=== PATIENT | male | born 1990 | race Two or more races ===

== ENCOUNTER 2016-05-14 14:20 | Inpatient (IN) | payer OTHER ==
[~2016-05-14] VITALS: Ht 177.8 cm; Wt 80.0 kg
[2016-05-14 15:27] LABS: MEAN CORPUSCULAR HEMOGLOBIN 28.2 pg (27.0-33.0); MEAN CORPUSCULAR HGB CONC 34.9 g/dl (32.0-36.5); MEAN CORPUSCULAR VOLUME 80.7 fl (80.0-96.0); RED CELL DISTRIBUTION WIDTH 12.5 % (11.5-14.5); WHITE BLOOD COUNT 8.3 K/mm3 (4.0-10.0)
[2016-05-14 15:52] LABS: ALBUMIN 3.9 GM/DL (3.2-5.2); ALBUMIN/GLOBULIN RATIO 0.91 (1.00-1.93); ALKALINE PHOSPHATASE 86 U/L (45-117); ALT/SGPT 24 U/L (12-78); ANION GAP 5 MEQ/L (8-16); AST/SGOT 15 U/L (15-37); BILIRUBIN,DIRECT < 0.1 MG/DL (0.0-0.2); BILIRUBIN,TOTAL 0.3 MG/DL (0.2-1.0); BLOOD UREA NITROGEN 17 MG/DL (7-18); CARBON DIOXIDE LEVEL 32 MEQ/L (21-32); CHLORIDE LEVEL 104 MEQ/L (98-107); CREATININE FOR GFR 1.04 MG/DL (0.70-1.30); GLOMERULAR FILTRATION RATE > 60.0 (>60); GLUCOSE, FASTING 90 MG/DL (70-105); POTASSIUM SERUM 3.9 MEQ/L (3.5-5.1); SODIUM LEVEL 141 MEQ/L (136-145); TOTAL PROTEIN 8.2 GM/DL (6.4-8.2)
[2016-05-14 16:22] LABS: CONTROL LINE INT CTR LINE PRESENT; METHADONE URINE NEGATIVE (NEGATIVE); TRICYCLIC ANTIDEPRESS URINE NEGATIVE (NEGATIVE)
--- NOTE | 2016-05-15 12:34 | EDDOCDS ---
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 Disposition: 05/15/16 12:09 Hospitalization ordered by Jorge Rueda for Inpatient Admission. Preliminary diagnosis is Major depressive disorder, single episode, moderate. - Bed requested for Admit. - Status is Inpatient Admission. kcs - Condition is Stable. - Problem is new. - Symptoms are unchanged. Historical: - Allergies: no known allergies; - Home Meds: 1. none - PMHx: none; - PSHx: wisdom teeth extraction; [facility]; left arm bone surgery as a child (fx); - Social history: Smoking status: Patient states was never smoker of tobacco. No barriers to communication noted. - Family history: Not pertinent. - : The pt / caregiver states he / she is not on anticoagulants. Home medication list is obtained from the patient. - Exposure Risk Screening:: None identified. Vital Signs: 05/14 14:29 BP 139 / 75; Pulse 86; Resp 18; Temp 97.2(O); Pulse Ox 99% on R/A; Weight 77.11 kg / mk4 170 lbs; Height 5 ft. 10 in. (177.80 cm); 20:19 BP 133 / 76; Pulse 75; Resp 16; Temp 98.2(TE); Pulse Ox 98% on R/A; rw1 05/15 05:24 BP 128 / 76; Pulse 65; Resp 16; Temp 97.3(T); Pulse Ox 97% on R/A; Pain 0/10; rw1 12:24 BP 125 / 76; Pulse 85; Resp 18; Temp 97.4(O); Pulse Ox 97% ; dpm 05/14 14:29 Body Mass Index 24.39 (77.11 kg, 177.80 cm) mk4 MDM: 05/14 14:33 Consult PFS/PSA/Cable Wirer ordered. br1 14:33 Consult PFS/PSA/Cable Wirer: Patient's case requires discussion with on-call br1 Psychiatrist ordered. 14:33 PSA/PFS to call Nursing [employer], to enter patient data on [place] Safe Act if patient br1 involuntarily admitted or transferred for SI or HI ordered. 14:33 Confirm accurate psychiatric medication list and times of last dosage ordered. br1 14:33 Detain Pt Until Medically/PFS Cleared ordered. br1 14:34 Acetaminophen Level Ordered. EDMS 14:34 Basic Metabolic Profile Ordered. EDMS 14:34 Complete Blood Count Ordered. EDMS 14:34 Drug Eval Toxicology ED Only Ordered. EDMS 14:34 Ethyl Alcohol (ethanol) Ordered. EDMS 14:34 Liver Profile Ordered. EDMS 14:34 Salicylate Level Ordered. EDMS 14:34 Thyroid Stimulating Hormone Ordered. EDMS 15:07 Consult PFS/PSA/Cable Wirer complete. rb 15:12 Consult PFS/PSA/Cable Wirer: Patient's case requires discussion with on-call mk4 Psychiatrist complete. 15:12 PSA/PFS to call [employer], to enter patient data [place] Safe [place] if patient mk4 involuntarily admitted or transferred for SI or HI complete. 15:51 Financial registration complete. zo 16:26 Acetaminophen Level Reviewed. br1 16:26 Basic Metabolic Profile Reviewed. br1 16:26 Liver Profile Reviewed. br1 16:26 Salicylate Level Reviewed. br1 16:26 Complete Blood Count Reviewed. br1 16:26 Drug Eval Toxicology ED Only Reviewed. br1 16:26 Ethyl Alcohol (ethanol) Reviewed. br1 16:26 Thyroid Stimulating Hormone Reviewed. br1 16:36 REGULAR DIET PLASTIC RUSOS+DIET ordered. EDMS 16:59 [facility] Payment Agreement was scanned into [employer] and attached to record. zo 17:00 Consult PFS/PSA/Socail Worker: Cleared medically for eval ordered. br1 17:01 Consult PFS/PSA/Socail Worker: Cleared medically for eval complete. rb 18:58 Transition of care: After a detail discussion of the patient's case, care is br1 transferred to ED Physician, Dr. Duncan. 05/15 04:34 REGULAR DIET PLASTIC RUSSO+DIET ordered. EDMS 06:38 REGULAR DIET PED PLASTIC RUSSO ordered. EDMS 11:45 REGULAR DIET PLASTIC RUSSO+DIET ordered. EDMS 12:02 Admit to [facility]: ordered. EDMS 12:11 [facility] Legal paperwork was scanned into [employer] and attached to record. jl Signatures: Dispatcher [employer] EDElisha Daugherty MD MD sd1 Carol Goldsmith RN RN kcs Jeanette Pastor, PAWEL PSA Alejandro Lay, PAWEL PSA Rosie Burt Brian, MD MD br1 Angela Nava RN RN mk4 The chart was reviewed and I authenticate all verbal orders and agree with the evaluation and treatment provided.Attachments: 05/14 16:59 [facility] Agreement zo MTDD
--- NOTE | 2016-05-15 12:34 | EDDOCDS ---
Nurse's Notes [facility] Name: Rony Michael Age: 25 yrs Sex: Male : 1990 Arrival Date: 05/14/2016 Time: 14:20 Bed OBSERVATION Private MD: Diagnosis: Major depressive disorder, single episode, moderate Presentation: 05/14 14:26 Presenting complaint: Patient states: pt walked into [facility] at [place] today mk4 to talk to someone, last evening he had thoughts of suicide with a plan did not discuss plan with me , this morning he decided to go talk to someone and he was sent here from [facility]. Mental Health Triage Level: Level 2: The patient displays active suicidal ideations. Adult Sepsis Screening: The patient does not have new or worsening altered mentation. Patient's respiratory rate is less than 22. Systolic blood pressure is greater than 100. Patient has a qSOFA score of 0- Negative Sepsis Screen. Suicide/Homicide risk assessment- The patient admits to and/or has been reported to be having suicidal ideations. The patient reports that he/she has not been admitted to an inpatient mental health facility in the last 30 days. The patient reports that he/she does not have a recent or current history of substance abuse. The patient reports that he/she has no prior history of suicide attempt and/or organized plan. The patient reports that he/she has not experienced a significant life altering event in the last 30 days. The patient reports that he/she has adequate social support. The patient reports he/she has no significant chronic medical condition(s). 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 Transition of care: patient was received from [facility]. 14:26 Acuity: [place] Level 3 mk4 14:26 Method Of Arrival: Ambulance mk4 15:30 Suicide/Homicide risk assessment- The patient reports that he/she has experienced a mk4 significant life altering event in the last 30 days. Triage Assessment: 14:29 General: Appears in no apparent distress, Behavior is flat, quiet. Pain: Denies pain. mk4 HIV screening NA for this visit Offered previously. Historical: - Allergies: no known allergies; - Home Meds: 1. none - PMHx: none; - PSHx: wisdom teeth extraction; [facility] Eye Surgery; left arm bone surgery as a child (fx); - Social history: Smoking status: Patient states was never smoker of tobacco. No barriers to communication noted. - Family history: Not pertinent. - : The pt / caregiver states he / she is not on anticoagulants. Home medication list is obtained from the patient. - Exposure Risk Screening:: None identified. Screenin:53 Screening information is obtained from the patient. Fall risk: No risks identified. mk4 Assistance ADL's: requires no assistance with activities of daily living. Abuse/DV Screen: The patient / caregiver reports he/she is: not in a situation that causes fear, pain or injury. Nutritional screening: No deficits noted. Advance Directives: Currently, there is no health care proxy. There is no active DNR order. There is no living will. There is no Power of Buncher Machine. Advance directive information has not previously been placed in an [facility] medical record. Further advance directive information is declined. 15:29 home support is adequate. mk4 Assessment: 14:53 General: Appears in no apparent distress, Behavior is cooperative, dr finn in mk4 interviewing pt. Neurological: Level of Consciousness is awake, Oriented to person, place, time. Respiratory: Airway is patent Respiratory effort is even, unlabored, Respiratory pattern is regular. 15:29 General: Appears in no apparent distress, comfortable, escort in at bedside with pt. mk4 Neurological: Level of Consciousness is awake, alert. Respiratory: Airway is patent Respiratory effort is even, unlabored, Respiratory pattern is regular. 16:30 General: Appears in no apparent distress, Behavior is cooperative. Neurological: Level mk4 of Consciousness is awake, alert. Respiratory: Airway is patent Respiratory effort is even, unlabored, Respiratory pattern is regular. 17:42 General: Appears in no apparent distress, comfortable, Behavior is cooperative, using mk4 phone in room remains calm . 19:15 Reassessment: Patient appears in no apparent distress at this time. awake resting rw1 quietly on stretcher, safety maintained will monitor.. 20:00 General: Appears in no apparent distress, comfortable, Safety maintained at this time, nn1 resp even/unlabored. . 20:19 General: Appears in no apparent distress, comfortable, Behavior is appropriate for age, rw1 cooperative, pleasant. Pain: Denies pain. Neurological: Level of Consciousness is awake, alert, obeys commands, Oriented to person, place, time. Respiratory: Airway is patent Respiratory effort is even, unlabored. Derm: Skin is pink, warm & dry. normal. 21:20 Reassessment: Patient appears in no apparent distress at this time. awake resting rw1 quietly on stretcher, safety maintained will monitor.. 22:26 Reassessment: Patient appears in no apparent distress at this time. awake resting rw1 quietly on stretcher, safety maintained will monitor.. 23:27 General: Appears in no apparent distress, comfortable, Behavior is resting quietly on rw1 stretcher, safety maintained. Respiratory: Airway is patent Respiratory effort is even, unlabored. Derm: Skin is pink, warm & dry. normal. 05/15 00:20 Reassessment: Patient appears in no apparent distress at this time. resting quietly on rw1 stretcher, safety maintained will monitor.. 01:14 Reassessment: Patient appears in no apparent distress at this time. resting quietly on rw1 stretcher, safety maintained will monitor.. 01:23 General: Appears in no apparent distress, to be sleeping. Behavior is quiet, Safety nn1 maintained. . Neurological:. Respiratory: Airway is patent Respiratory effort is even, unlabored, Respiratory pattern is regular. Derm: Skin is pink, warm & dry. 02:19 Reassessment: Patient appears in no apparent distress at this time. resting quietly on rw1 stretcher, safety maintained. 03:15 Reassessment: Patient appears in no apparent distress at this time. resting quietly on rw1 stretcher, safety maintained. 04:32 General: Appears in no apparent distress, comfortable, Behavior is resting quietly on rw1 stretcher, safety maintained. Respiratory: Airway is patent Respiratory effort is even, unlabored. Derm: Skin is pink, warm & dry. normal. 05:24 General: Appears in no apparent distress, comfortable, Behavior is appropriate for age, rw1 cooperative, quiet. Pain: Denies pain. Neurological: Level of Consciousness is awake, alert, obeys commands, Oriented to person, place, time. Respiratory: Airway is patent Respiratory effort is even, unlabored. Derm: Skin is pink, warm & dry. normal. 06:13 Reassessment: Patient appears in no apparent distress at this time. for further rw1 documentation see [employer]. 06:43 General: Appears in no apparent distress, comfortable, to be sleeping. Respiratory: nn1 Airway is patent Respiratory effort is even, unlabored, Respiratory pattern is regular, symmetrical. Derm: Skin is pink, warm & dry. 10:09 Reassessment: Patient sleeping on stretcher - respirations easy. Has eaten breakfast. kcs Security observing.. 11:14 Reassessment: Patient sleeping. Respirations easy. Color = pink. Roused easily to kcs voice. Denies any needs. security observing.. 12:22 Reassessment: Patient states he is bored and looking forward to admission.. General: kcs Appears comfortable, well developed, well nourished, well groomed, Behavior is cooperative, pleasant. Pain: Denies pain. Neurological: Level of Consciousness is awake, alert. Respiratory: Airway is patent Respiratory effort is even, unlabored, Respiratory pattern is regular, symmetrical. Derm: Skin is intact, is healthy with good turgor, Skin is dry, Skin is normal. Mental Health Eval: 05/14 15:55 Mental health consult is initiated at 15:45. 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 [facility] Behavioral Health: The patient is not an established patient of [facility] Behavioral Health. Referral Information: Evaluation referral is generated by the patient's therapist PHONE MANAGER \\[facility]\\ [place]. The patient was referred for evaluation because Pt presented to ED after walkin \\T\\ [facility] stating +SI with plan for MVA last night. Pt stated fleeting +SI since February, with increased +SI thoughts with a plan almost daily. Pt stated, "Not willing to be alive", "go into down spiral", last around an hour throughout the day," worse when alone". Pt reported depression spiral started after 2nd divorce ( 2 years) a year ago. Pt's exWife went back to [place] and took their 2y/o Dgt. Pt not allowed to see Dgt. according to Pt. 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 Pt stated his depression affects his soldiers, "not able to care for my men". Pt cannot CFS. . Subjective: The patients chief complaint is increased depressed, +SI with plan to smash his car., anxiety. Delusions are denied. Patient's mood is anxious, dysphoric, hopeless, Hallucinations are denied. Mental Health history: anxiety, depression, Mental Health Admissions: None. Current Outpatient Mental Health Services: Therapist / Agency: PHONE MANAGER on [place]. Next apt is not scheduled, Pt scheduled for [facility] for 1 month next week.. Current living environment is The patient currently lives in a [facility]. The patient is . Patient presents to Emergency Department with the following symptoms within the past 2 weeks: anxiety, depressed mood, feelings of helplessness/hopelessness, labile mood, poor concentration, relational problem, sleep disturbance - insomnia, suicidal ideation with plan for motor vehicle crash. Substance abuse: Pt denies. Mental status exam: Patients appearance is appropriate, Patient's behavior is cooperative, minimally responsive Speech is mumbled. slow. Affect is flat. Mood is anxious. dysphoric. Hallucinations are denied. Appetite is erratic Memory is good. Energy level is lethargic. Content of thought is depressive. , Thought process is characterized by flight of ideas. Cognitive level is oriented to person, place, time and situation Patient's insight is poor. Judgement is poor. Rapport with interviewer is good. Suicidal Ideation present with a plan to kill self by motor vehicle crash. Homicidal ideation is not present. Disposition: Medically cleared for disposition by Angelito Finn MD. 16:52 Disposition: Psychiatric Consult is performed by phone with Dr Jorge Rueda MD. [facility] rb Admission Criteria: The patient is experiencing suicidal ideation. The patient displays symptoms of severe psychiatric disorder resulting in disordered behavior and significant interference with his / her ability to maintain self care. The patient requires continuous observation and/or control to protect self, others or property. Legal Status: Patient's legal status will be Emergency admission: 9.39. [place] Safe Act: [place] Safe Act is applicable to this patient. The patient poses a risk to self or other and the Nursing Nurse Leader has been notified. He/She will enter the patient's data. Insurance Pre-Certification: Not Required. 20:08 Narrative: At this time [facility], as well as all other surrounding area hospitals are jl at capacity. Patient to remain in ED while awaiting a bed. He & his Mary are both aware of this. 05/15 12:17 Narrative: Pt legals placed with belongings. rb Vital Signs: 05/14 14:29 BP 139 / 75; Pulse 86; Resp 18; Temp 97.2(O); Pulse Ox 99% on R/A; Weight 77.11 kg; mk4 Height 5 ft. 10 in. (177.80 cm); 20:19 BP 133 / 76; Pulse 75; Resp 16; Temp 98.2(TE); Pulse Ox 98% on R/A; rw1 05/15 05:24 BP 128 / 76; Pulse 65; Resp 16; Temp 97.3(T); Pulse Ox 97% on R/A; Pain 0/10; rw1 12:24 BP 125 / 76; Pulse 85; Resp 18; Temp 97.4(O); Pulse Ox 97% ; dpm 05/14 14:29 Body Mass Index 24.39 (77.11 kg, 177.80 cm) 4 Vitals: 05/14 14:29 Log In Time N/A - ambulance arrival. 4 ED Course: 14:21 Patient visited by Beth Hammer Reg. lg 14:[address] [facility] 14:21 Patient moved to [facility] dpm 14:28 Triage Initiated mk4 14:31 Patient visited by Olayinka Quevedo. dpm 14:32 Pt greeted and oriented to ED. Patient advised of names of staff involved in care, dpm location of call solorio, wait times and NPO status. Patient has correct armband on for positive identification. Placed in gown. Placed in psych safe attire. Bed in low position. Security observing. Property removed, inventory done, secured in belongings bag- placed in locked locker. Placed in locker 1. Psych Safety Check: Location: Psych Room. Visual Assessment: Cooperative. 14:33 Angelito Finn MD is Attending Physician. br1 14:53 The patient / caregiver is instructed regarding the plan of care and ED course. mk4 15:03 Patient visited by Angelito Finn MD. br1 15:12 Acetaminophen Level Sent. mk4 15:12 Basic Metabolic Profile Sent. mk4 15:12 Complete Blood Count Sent. mk4 15:12 Ethyl Alcohol (ethanol) Sent. mk4 15:12 Liver Profile Sent. mk4 15:12 Salicylate Level Sent. mk4 15:12 Thyroid Stimulating Hormone Sent. mk4 15:31 Patient visited by Olayinka Quevedo. dpm 15:45 Patient visited by Olayinka Quevedo. dpm 15:50 Drug Eval Toxicology ED Only Sent. mk4 16:01 Patient visited by Olayinka Quevedo. dpm 16:16 Patient visited by Olayinka Quevedo. dpm 16:31 Patient visited by Olayinka Quevedo. dpm 16:59 [facility] Payment Agreement was scanned into [employer] and attached to record. zo 17:01 Patient visited by Olayinka Quevedo. dpm 17:20 Patient visited by Olayinka Quevedo. dpm 17:35 Patient visited by Olayinka Quevedo. dpm 17:45 Patient moved to OBSERVATION br1 17:53 Patient visited by Olayinka Quevedo. dpm 18:08 Patient visited by Olayinka Quevedo. dpm 18:35 Patient visited by Olayinka Quevedo. dpm 18:53 Patient visited by Olayinka Quevedo. dpm 19:03 Patient visited by Navid Torres. tr 19:14 Patient visited by Navid Torres. tr 19:18 Bladimir Coffman LPN is Primary Nurse. rw1 19:29 Patient visited by Navid Torres. tr 19:34 Patient visited by Navid Torres. tr 19:49 Attending Physician role handed off by Angelito Finn MD cs11 19:49 Frankie Duncan DO is Attending Physician. cs11 20:01 Patient visited by Navid Torres. tr 20:18 Patient visited by Navid Torres. tr 20:32 Patient visited by Navid Torres. tr 20:46 Patient visited by Navid Torres. tr 21:00 Patient visited by Navid Torres. tr 21:14 Patient visited by Navid Torres. tr 21:30 Patient visited by Navid Torres. tr 22:00 Patient visited by Navid Torres. tr 22:28 Patient visited by Navid Torres. tr 22:45 Patient visited by Navid Torres. tr 23:01 Patient visited by Navid Torres. tr 23:15 Patient visited by Navid Torres. tr 23:30 Patient visited by Navid Torres. tr 23:44 Patient visited by Navid Torres. tr 05/15 00:00 Patient visited by Navid Torres. tr 00:18 Patient visited by Brian Navid. tr 00:48 Patient visited by [facility]. tr 01:13 Patient visited by Bladimir Coffman LPN. rw1 01:30 Patient visited by [facility] Navid. tr 01:48 Patient visited by [facility] Navid. tr 02:04 Patient visited by [facility]. tr 02:17 Patient visited by [facility]. tr 02:29 Patient visited by [facility] Navid. tr 02:44 Patient visited by [facility]. tr 03:01 Patient visited by [facility]. tr 03:17 Patient visited by [facility] Navid. tr 03:30 Patient visited by [facility]. tr 03:47 Patient visited by [facility]. tr 03:59 Patient visited by [facility]. tr 04:14 Patient visited by [facility]. tr 04:30 Patient visited by [facility]. tr 04:44 Patient visited by [facility]. tr 05:01 Patient visited by [facility]. tr 05:14 Patient visited by [facility]. tr 05:43 Patient visited by [facility]. tr 05:59 Patient visited by [facility]. tr 06:02 Patient visited by [facility]. tr 06:17 Patient visited by [facility]. tr 06:30 Patient visited by [facility]. tr 06:44 Patient visited by [facility]. tr 06:46 Patient visited by [facility]. tr 06:49 Attending Physician role handed off by Frankie Duncan DO sd1 06:49 Elisha Galser MD is Attending Physician. sd1 07:04 Patient visited by Olayinka Quevedo. dpm 07:04 Report received from ROQUE Levy. kcs 07:15 Patient visited by Olayinka Quevedo. dpm 07:28 Patient visited by Olayinka Quevedo. dpm 08:03 Patient visited by Olayinka Quevedo. dpm 08:37 Patient visited by Olayinka Quevedo. dpm 08:45 Patient visited by Olayinka Quevedo. dpm 09:02 Patient visited by Olayinka Quevedo. dpm 09:32 Patient visited by Olayinka Quevedo. dpm 09:52 Patient visited by Olayinka Quevedo. dpm 10:05 Patient visited by Olayinka Quevedo. dpm 10:22 Patient visited by Olayinka Quevedo. dpm 10:33 Patient visited by Olayinka Quevedo. dpm 10:54 Patient visited by Olayinka Quevedo. dpm 11:10 Patient visited by Olayinka Quevedo. dpm 11:41 Patient visited by Olayinka Quevedo. dpm 12:09 Jorge Rueda MD is Hospitalizing Provider. sd1 12:11 [facility] Legal paperwork was scanned into [employer] and attached to record. jl 12:15 Patient visited by Olayinka Quevedo. dpm 12:22 No IV's were initiated during this patient's visit. No procedures done that require kcs assistance. 12:24 Patient visited by Olayinka Quevedo. dpm 12:31 Patient visited by Olayinka Quevedo. dpm Attachments: 05/15 12:11 E Legal paperwork jl Order Results: Lab Order: Acetaminophen Level; SPEC'M 05/14/16 14:52 Test: ACETAMINOPHEN LEVEL; Value: < 2.0; Range: 10.0-30.0; Abnormal: Below low normal; Units: UG/ML; Status: F Lab Order: Basic Metabolic Profile; SPEC'M 05/14/16 14:52 Test: GLUCOSE, FASTING; Value: 90; Range: 70-105; Units: MG/DL; Status: F Test: BLOOD UREA NITROGEN; Value: 17; Range: 7-18; Units: MG/DL; Status: F Test: CREATININE FOR GFR; Value: 1.04; Range: 0.70-1.30; Units: MG/DL; Status: F Test: GLOMERULAR FILTRATION RATE; Value: > 60.0; Range: >60; Status: F Test: SODIUM LEVEL; Value: 141; Range: 136-145; Units: MEQ/L; Status: F Test: POTASSIUM SERUM; Value: 3.9; Range: 3.5-5.1; Units: MEQ/L; Status: F Test: CHLORIDE LEVEL; Value: 104; Range: 98-107; Units: MEQ/L; Status: F Test: CARBON DIOXIDE LEVEL; Value: 32; Range: 21-32; Units: MEQ/L; Status: F Test: ANION GAP; Value: 5; Range: 8-16; Abnormal: Below low normal; Units: MEQ/L; Status: F Test: CALCIUM LEVEL; Value: 9.0; Range: 8.5-10.1; Units: MG/DL; Status: F Test Note: ; Units are mL/min/1.73 m2 Chronic Kidney Disease Staging per NKF: Stage I & II GFR >=60 Normal to Mildly Decreased Stage III GFR 30-59 Moderately Decreased Stage IV GFR 15-29 Severely Decreased Stage V GFR <15 Very Little GFR Left ESRD GFR <15 on COMPUTER ASSISTANT Lab Order: Complete Blood Count; SPEC'M 05/14/16 14:52 Test: WHITE BLOOD COUNT; Value: 8.3; Range: 4.0-10.0; Units: K/mm3; Status: F Test: RED BLOOD COUNT; Value: 5.48; Range: 4.30-6.10; Units: M/mm3; Status: F Test: HEMOGLOBIN; Value: 15.4; Range: 14.0-18.0; Units: g/dl; Status: F Test: HEMATOCRIT; Value: 44.2; Range: 42.0-52.0; Units: %; Status: F Test: MEAN CORPUSCULAR VOLUME; Value: 80.7; Range: 80.0-96.0; Units: fl; Status: F Test: MEAN CORPUSCULAR HEMOGLOBIN; Value: 28.2; Range: 27.0-33.0; Units: pg; Status: F Test: MEAN CORPUSCULAR HGB CONC; Value: 34.9; Range: 32.0-36.5; Units: g/dl; Status: F Test: RED CELL DISTRIBUTION WIDTH; Value: 12.5; Range: 11.5-14.5; Units: %; Status: F Test: PLATELET COUNT, AUTOMATED; Value: 365; Range: 150-450; Units: k/mm3; Status: F Lab Order: Drug Eval Toxicology ED Only; SPEC'M 05/14/16 14:52 Test: AMPHETAMINES LEVEL URINE; Value: NEGATIVE; Range: NEGATIVE; Status: F Test: BARBITURATES URINE; Value: NEGATIVE; Range: NEGATIVE; Status: F Test: BENZODIAZEPINES URINE; Value: NEGATIVE; Range: NEGATIVE; Status: F Test: CANNABINOIDS URINE; Value: NEGATIVE; Range: NEGATIVE; Status: F Test: COCAINE METABOLITE URINE; Value: NEGATIVE; Range: NEGATIVE; Status: F Test: METHADONE URINE; Value: NEGATIVE; Range: NEGATIVE; Status: F Test: OPIATES URINE; Value: NEGATIVE; Range: NEGATIVE; Status: F Test: TRICYCLIC ANTIDEPRESS URINE; Value: NEGATIVE; Range: NEGATIVE; Status: F Test Note: ; ALL PRESUMPTIVE POSITIVE FINDINGS ARE UNCONFIRMED NORMAL VALUES THRESHOLD IN NG/ML AMPHETAMINES 1000 METHAMPHETAMINES 1000 BARBITURATES 300 BENZODIAZEPINES 300 CANNABINOIDS (THC) 50 COCAINE METABOLITE 300 METHADONE 300 OPIATES 300 PHENCYCLIDINE 25 TRICYCLIC ANTIDEPRESSANTS 1000 RESULTS ARE FOR MEDICAL PURPOSES ONLY. ALL URINE SPECIMENS WILL BE SAVED FOR 3 DAYS. IF CONFIRMATION OF A PRESUMPTIVE POSTIVE SCREEN RESULT IS DESIRED, CALL CHEMISTRY ([phone]) AND REQUEST URINE TO BE SENT TO REFERENCE LAB. FOR A LIST OF CLOSELY RELATED COMPOUNDS PLEASE CALL THE LAB. Lab Order: Ethyl Alcohol (ethanol); SPEC'M 05/14/16 14:52 Test: ETHYL ALCOHOL (ETHANOL); Value: < 0.003; Range: 0.000-0.010; Units: %; Status: F Lab Order: Liver Profile; SPEC'M 05/14/16 14:52 Test: AST/SGOT; Value: 15; Range: 15-37; Units: U/L; Status: F Test: ALT/SGPT; Value: 24; Range: 12-78; Units: U/L; Status: F Test: ALKALINE PHOSPHATASE; Value: 86; Range: 45-117; Units: U/L; Status: F Test: BILIRUBIN,TOTAL; Value: 0.3; Range: 0.2-1.0; Units: MG/DL; Status: F Test: BILIRUBIN,DIRECT; Value: < 0.1; Range: 0.0-0.2; Units: MG/DL; Status: F Test: TOTAL PROTEIN; Value: 8.2; Range: 6.4-8.2; Units: GM/DL; Status: F Test: ALBUMIN; Value: 3.9; Range: 3.2-5.2; Units: GM/DL; Status: F Test: ALBUMIN/GLOBULIN RATIO; Value: 0.91; Range: 1.00-1.93; Abnormal: Below low normal; Status: F Lab Order: Salicylate Level; SPEC'M 05/14/16 14:52 Test: SALICYLATE LEVEL; Value: < 1.7; Range: 5.0-30.0; Abnormal: Below low normal; Units: MG/DL; Status: F Lab Order: Thyroid Stimulating Hormone; SPEC'M 05/14/16 14:52 Test: THYROID STIMULATING HORMONE; Value: 2.570; Range: 0.358-3.740; Units: uIU/ML; Status: F Outcome: 12:09 Decision to Hospitalize by Provider. sd1 12:22 Discharge Assessment: Patient awake, alert and oriented x 3. No cognitive and/or kcs functional deficits noted. Patient verbalized understanding of disposition instructions. Patient awake and alert. patient administered narcotics - no. The following High Risk Discharge criteria are identified: Yes, evaluated by PSA.. Admitted to Psych accompanied by tech, via wheelchair, with chart. Condition: stable. No special radiology studies were completed. Property :Personal belongings accompany Pt. 12:33 Patient left the ED. kcs Signatures: Elisha Glaser MD MD sd1 Carol Goldsmith RN RN kcs Jeanette Pastor, PSA PSA rb Alejandro Blanco, PSA PSA jl Beth Hammer, Troy Reg lg Brian, Navid tr Bladimir Coffman,HEALTH PROFESSOR HEALTH PROFESSOR rw1 Rosie Cohen Brian, MD MD br1 Olayinka Quevedo dpFrankie Snatos, DO cs11 Angela Nava RN RN mk4 Cam Albert RN RN nn1 MTDD
[2016-05-15 12:50] VITALS: BP 135/78
[2016-05-15] MEDS ORDERED: MAALOX 30 ML SUSP *UDC PO PRN (14:45)
[2016-05-15] MEDS ORDERED: ACETAMINOPHEN TAB 650MG DOSE (2X325MG) PO PRN (14:45)
[2016-05-15] MEDS ORDERED: MOM 30ML SUSPENSION UDC PO PRN (14:45)
[2016-05-15] MEDS ORDERED: LORazepam 1 MG TAB PO PRN (14:45)
[2016-05-15 18:00] VITALS: BP 124/65
[2016-05-15 21:30] VITALS: BP 136/82
[2016-05-16 06:35] VITALS: BP 115/55
--- NOTE | 2016-05-16 09:52 | HPEPDOC ---
Medical History and Physical Date of Admission May 15, 2016 at 11:58 History and Physical PCP: Toña ATTENDING: Dr. Saul Figueredo HPI: 25yoM admitted to [facility] for MDD, being medically examined today. No acute medical complaints today. Denies any fevers, chills, weakness, fatigue, NICOLE, CP, SOB, cough, palpitations, abdominal pain, N/V/D or changes in bowel or bladder habits. 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 ROS: As noted in HPI, otherwise 11pt ROS of systems reviewed and unremarkable PE: GEN: 25yoM, appears stated age. Well-nourished, well developed. No acute distress. Alert and oriented x 3. Pleasant, interactive. HEENT: Normocephalic, atraumatic. Pupils are equal, round, and reactive to light. Extraocular movements are intact. No nystagmus appreciated. Sclera are nonicteric. Conjunctiva without injection. Nose midline. Nasal turbinates without bogginess. EACs both patent BL. TMs both visualized and nogueira with good cone of light, no bulging or erythema. No facial asymmetry. Moist mucous membranes. Dentition fair. Pharynx pink and moist, no cobblestoning. Neck supple , trachea midline. No lymphadenopathy or thyromegaly appreciated. CHEST: Regular rate and rhythm, +S1, +S2 LUNGS: Clear to auscultation bilaterally. No wheezes, rales, or rhonchi. Breathing appears symmetric and easy. Patient is speaking in full sentences. No accessory muscle use. ABD: Round, soft, non-tender, non-distended. +Bowel sounds throughout. No rebound or guarding. No costovertebral angle tenderness. EXT: Pulses 2+ bilaterally dorsalis pedis and radial. No lower extremity edema appreciated. SKIN: [place], dry, warm. Capillary refill <2sec. No rashes. NEURO: Alert and oriented x 3. Cranial nerves III-XII are intact. No focal deficits appreciated. EKG: Pending. A&P: 25yoM admitted to [facility] for MDD 1. Psych. Plan per Psychiatry. Obtain baseline EKG to assure the safety of psychiatric medications as they can prolong the QT interval. 2. Follow up with PCP on discharge. 3. Staff member present throughout exam, lilibeth Leal. Vital Signs Vital Signs Label Value Date Time Patient Temperature 96.2 degrees F 05/16/16 0635 Temperature Source Tympanic 05/16/16 0635 Pulse 59 05/16/16 0635 Respiratory Rate 14 bpm 05/16/16 0635 Blood Pressure Assessment 115/55 (75) 05/16/16 0635 Laboratory Data Labs 24H Item Value Date Time White Blood Count 8.3 K/mm3 05/14/16 1452 Red Blood Count 5.48 M/mm3 05/14/16 1452 Hemoglobin 15.4 g/dl 05/14/16 1452 Hematocrit 44.2 % 05/14/16 1452 Mean Corpuscular Volume 80.7 fl 05/14/16 1452 Mean Corpuscular Hemoglobin 28.2 pg 05/14/16 1452 Mean Corpuscular Hemoglobin Concent 34.9 g/dl 05/14/16 1452 Red Cell Distribution Width 12.5 % 05/14/16 1452 Platelet Count 365 k/mm3 05/14/16 1452 Sodium Level 141 MEQ/L 05/14/16 1452 Potassium Level 3.9 MEQ/L 05/14/16 1452 Chloride Level 104 MEQ/L 05/14/16 1452 Carbon Dioxide Level 32 MEQ/L 05/14/16 1452 Anion Gap 5 MEQ/L L 05/14/16 1452 Blood Urea Nitrogen 17 MG/DL 05/14/16 1452 Creatinine 1.04 MG/DL 05/14/16 1452 Glomerular Filtration Rate > 60.0 05/14/16 1452 Fasting Glucose 90 MG/DL 05/14/16 1452 Calcium Level 9.0 MG/DL 05/14/16 1452 Total Bilirubin 0.3 MG/DL 05/14/16 1452 Direct Bilirubin < 0.1 MG/DL 05/14/16 1452 Aspartate Amino Transf (AST/SGOT) 15 U/L 05/14/16 1452 Alanine Aminotransferase (ALT/SGPT) 24 U/L 05/14/16 1452 Alkaline Phosphatase 86 U/L 05/14/16 1452 Total Protein 8.2 GM/DL 05/14/16 1452 Albumin 3.9 GM/DL 05/14/16 1452 Albumin/Globulin Ratio 0.91 L 05/14/16 1452 Thyroid Stimulating Hormone (TSH) 2.570 uIU/ML 05/14/16 1452 Salicylates Level < 1.7 MG/DL L 05/14/16 1452 Urine Opiates Screen NEGATIVE 05/14/16 1452 Urine Methadone Screen NEGATIVE 05/14/16 1452 Acetaminophen Level < 2.0 UG/ML L 05/14/16 1452 Urine Barbiturates Screen NEGATIVE 05/14/16 1452 Urine Tricyclic Antidepressants NEGATIVE 05/14/16 1452 Urine Amphetamines Screen NEGATIVE 05/14/16 1452 Urine Benzodiazepines Screen NEGATIVE 05/14/16 1452 Urine Cocaine Metabolite Screen NEGATIVE 05/14/16 1452 Urine Cannabinoids Screen NEGATIVE 05/14/16 1452 Ethyl Alcohol Level < 0.003 % 05/14/16 1452 Home Medications No Active Prescriptions or Reported Meds Allergies Coded Allergies: No Known Allergies (Unverified , 05/15/16) Iris Pedroza May 16, 2016 09:52
[2016-05-16 12:00] VITALS: BP 120/62
[2016-05-16 18:00] VITALS: BP 121/56
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
[2016-05-17 06:22] VITALS: BP 144/79
--- NOTE | 2016-05-17 12:52 | ECGEPIP ---
Stationary ECG Study [facility] Test Date: 2016-05-17 Pat Name: RAQUEL MCCURDY Department: Room: [place] [address] Gender: M [employer]ellite T[employer] Technician: WALDO : 1990 Requested By: Iris Pedroza Order Number: [id number] Reading MD: Saul Figueredo Measurements Intervals Dora Rate: 64 P: 32 GA: 163 QRS: 73 QRSD: 89 T: 42 QT: 391 QTc: 404 Interpretive Statements SINUS RHYTHM Comparison tracing not on file Electronically Signed On 05-17-2016 12:52:28 EST by Saul Figueredo
--- NOTE | 2016-05-17 13:34 | EDDOCDS ---
Nurse's Notes [facility] Name: Rony Michael Age: 25 yrs Sex: Male : 1990 Arrival Date: 05/14/2016 Time: 14:20 Bed OBSERVATION Private MD: Diagnosis: Major depressive disorder, single episode, moderate Presentation: 05/14 14:26 Presenting complaint: Patient states: pt walked into [facility] today mk4 to talk to someone, last evening he had thoughts of suicide with a plan did not discuss plan with me , this morning he decided to go talk to someone and he was sent here from [facility]. Mental Health Triage Level: Level 2: The patient displays active suicidal ideations. Adult Sepsis Screening: The patient does not have new or worsening altered mentation. Patient's respiratory rate is less than 22. Systolic blood pressure is greater than 100. Patient has a qSOFA score of 0- Negative Sepsis Screen. Suicide/Homicide risk assessment- The patient admits to and/or has been reported to be having suicidal ideations. The patient reports that he/she has not been admitted to an inpatient mental health facility in the last 30 days. The patient reports that he/she does not have a recent or current history of substance abuse. The patient reports that he/she has no prior history of suicide attempt and/or organized plan. The patient reports that he/she has not experienced a significant life altering event in the last 30 days. The patient reports that he/she has adequate social support. The patient reports he/she has no significant chronic medical condition(s). 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 Transition of care: patient was received from [facility] [place]. 14:26 Acuity: [place] Level 3 mk4 14:26 Method Of Arrival: Ambulance mk4 15:30 Suicide/Homicide risk assessment- The patient reports that he/she has experienced a mk4 significant life altering event in the last 30 days. Triage Assessment: 14:29 General: Appears in no apparent distress, Behavior is flat, quiet. Pain: Denies pain. mk4 HIV screening NA for this visit Offered previously. Historical: - Allergies: no known allergies; - Home Meds: 1. none - PMHx: none; - PSHx: wisdom teeth extraction; [facility]; left arm bone surgery as a child (fx); - Social history: Smoking status: Patient states was never smoker of tobacco. No barriers to communication noted. - Family history: Not pertinent. - : The pt / caregiver states he / she is not on anticoagulants. Home medication list is obtained from the patient. - Exposure Risk Screening:: None identified. Screenin:53 Screening information is obtained from the patient. Fall risk: No risks identified. mk4 Assistance ADL's: requires no assistance with activities of daily living. Abuse/DV Screen: The patient / caregiver reports he/she is: not in a situation that causes fear, pain or injury. Nutritional screening: No deficits noted. Advance Directives: Currently, there is no health care proxy. There is no active DNR order. There is no living will. There is no Power of Hook Puller. Advance directive information has not previously been placed in an [facility] medical record. Further advance directive information is declined. 15:29 home support is adequate. mk4 Assessment: 14:53 General: Appears in no apparent distress, Behavior is cooperative, dr finn in mk4 interviewing pt. Neurological: Level of Consciousness is awake, Oriented to person, place, time. Respiratory: Airway is patent Respiratory effort is even, unlabored, Respiratory pattern is regular. 15:29 General: Appears in no apparent distress, comfortable, escort in at bedside with pt. mk4 Neurological: Level of Consciousness is awake, alert. Respiratory: Airway is patent Respiratory effort is even, unlabored, Respiratory pattern is regular. 16:30 General: Appears in no apparent distress, Behavior is cooperative. Neurological: Level mk4 of Consciousness is awake, alert. Respiratory: Airway is patent Respiratory effort is even, unlabored, Respiratory pattern is regular. 17:42 General: Appears in no apparent distress, comfortable, Behavior is cooperative, using mk4 phone in room remains calm . 19:15 Reassessment: Patient appears in no apparent distress at this time. awake resting rw1 quietly on stretcher, safety maintained will monitor.. 20:00 General: Appears in no apparent distress, comfortable, Safety maintained at this time, nn1 resp even/unlabored. . 20:19 General: Appears in no apparent distress, comfortable, Behavior is appropriate for age, rw1 cooperative, pleasant. Pain: Denies pain. Neurological: Level of Consciousness is awake, alert, obeys commands, Oriented to person, place, time. Respiratory: Airway is patent Respiratory effort is even, unlabored. Derm: Skin is pink, warm & dry. normal. 21:20 Reassessment: Patient appears in no apparent distress at this time. awake resting rw1 quietly on stretcher, safety maintained will monitor.. 22:26 Reassessment: Patient appears in no apparent distress at this time. awake resting rw1 quietly on stretcher, safety maintained will monitor.. 23:27 General: Appears in no apparent distress, comfortable, Behavior is resting quietly on rw1 stretcher, safety maintained. Respiratory: Airway is patent Respiratory effort is even, unlabored. Derm: Skin is pink, warm & dry. normal. 05/15 00:20 Reassessment: Patient appears in no apparent distress at this time. resting quietly on rw1 stretcher, safety maintained will monitor.. 01:14 Reassessment: Patient appears in no apparent distress at this time. resting quietly on rw1 stretcher, safety maintained will monitor.. 01:23 General: Appears in no apparent distress, to be sleeping. Behavior is quiet, Safety nn1 maintained. . Neurological:. Respiratory: Airway is patent Respiratory effort is even, unlabored, Respiratory pattern is regular. Derm: Skin is pink, warm & dry. 02:19 Reassessment: Patient appears in no apparent distress at this time. resting quietly on rw1 stretcher, safety maintained. 03:15 Reassessment: Patient appears in no apparent distress at this time. resting quietly on rw1 stretcher, safety maintained. 04:32 General: Appears in no apparent distress, comfortable, Behavior is resting quietly on rw1 stretcher, safety maintained. Respiratory: Airway is patent Respiratory effort is even, unlabored. Derm: Skin is pink, warm & dry. normal. 05:24 General: Appears in no apparent distress, comfortable, Behavior is appropriate for age, rw1 cooperative, quiet. Pain: Denies pain. Neurological: Level of Consciousness is awake, alert, obeys commands, Oriented to person, place, time. Respiratory: Airway is patent Respiratory effort is even, unlabored. Derm: Skin is pink, warm & dry. normal. 06:13 Reassessment: Patient appears in no apparent distress at this time. for further rw1 documentation see [employer]. 06:43 General: Appears in no apparent distress, comfortable, to be sleeping. Respiratory: nn1 Airway is patent Respiratory effort is even, unlabored, Respiratory pattern is regular, symmetrical. Derm: Skin is pink, warm & dry. 10:09 Reassessment: Patient sleeping on stretcher - respirations easy. Has eaten breakfast. kcs Security observing.. 11:14 Reassessment: Patient sleeping. Respirations easy. Color = pink. Roused easily to kcs voice. Denies any needs. security observing.. 12:22 Reassessment: Patient states he is bored and looking forward to admission.. General: kcs Appears comfortable, well developed, well nourished, well groomed, Behavior is cooperative, pleasant. Pain: Denies pain. Neurological: Level of Consciousness is awake, alert. Respiratory: Airway is patent Respiratory effort is even, unlabored, Respiratory pattern is regular, symmetrical. Derm: Skin is intact, is healthy with good turgor, Skin is dry, Skin is normal. Mental Health Eval: 05/14 15:55 Mental health consult is initiated at 15:45. 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 [facility] Behavioral Health: The patient is not an established patient of [facility] Behavioral Health. Referral Information: Evaluation referral is generated by the patient's therapist SOCIAL MEDIA DIRECTOR \\[facility]\\ [place]. The patient was referred for evaluation because Pt presented to ED after walkin \\T\\ [facility] [place] stating +SI with plan for MVA last night. Pt stated fleeting +SI since February, with increased +SI thoughts with a plan almost daily. Pt stated, "Not willing to be alive", "go into down spiral", last around an hour throughout the day," worse when alone". Pt reported depression spiral started after 2nd divorce ( 2 years) a year ago. Pt's exWife went back to [place] and took their 2y/o Dgt. Pt not allowed to see Dgt. according to Pt. 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 Pt stated his depression affects his soldiers, "not able to care for my men". Pt cannot CFS. . Subjective: The patients chief complaint is increased depressed, +SI with plan to smash his car., anxiety. Delusions are denied. Patient's mood is anxious, dysphoric, hopeless, Hallucinations are denied. Mental Health history: anxiety, depression, Mental Health Admissions: None. Current Outpatient Mental Health Services: Therapist / Agency: [facility] [place]. Next apt is not scheduled, Pt scheduled for [facility] for 1 month next week.. Current living environment is The patient currently lives in a [facility]. The patient is . Patient presents to Emergency Department with the following symptoms within the past 2 weeks: anxiety, depressed mood, feelings of helplessness/hopelessness, labile mood, poor concentration, relational problem, sleep disturbance - insomnia, suicidal ideation with plan for motor vehicle crash. Substance abuse: Pt denies. Mental status exam: Patients appearance is appropriate, Patient's behavior is cooperative, minimally responsive Speech is mumbled. slow. Affect is flat. Mood is anxious. dysphoric. Hallucinations are denied. Appetite is erratic Memory is good. Energy level is lethargic. Content of thought is depressive. , Thought process is characterized by flight of ideas. Cognitive level is oriented to person, place, time and situation Patient's insight is poor. Judgement is poor. Rapport with interviewer is good. Suicidal Ideation present with a plan to kill self by motor vehicle crash. Homicidal ideation is not present. Disposition: Medically cleared for disposition by Angelito Finn MD. 16:52 Disposition: Psychiatric Consult is performed by phone with Dr Jorge Rueda MD. [facility] rb Admission Criteria: The patient is experiencing suicidal ideation. The patient displays symptoms of severe psychiatric disorder resulting in disordered behavior and significant interference with his / her ability to maintain self care. The patient requires continuous observation and/or control to protect self, others or property. Legal Status: Patient's legal status will be Emergency admission: 9.39. [place] Safe Act: [place] Safe Act is applicable to this patient. The patient poses a risk to self or other and the Nursing Online Merchandiser has been notified. He/She will enter the patient's data. Insurance Pre-Certification: Not Required. 20:08 Narrative: At this time [facility], as well as all other surrounding area hospitals are jl at capacity. Patient to remain in ED while awaiting a bed. He & his Mary are both aware of this. 05/15 12:17 Narrative: Pt legals placed with belongings. rb Vital Signs: 05/14 14:29 BP 139 / 75; Pulse 86; Resp 18; Temp 97.2(O); Pulse Ox 99% on R/A; Weight 77.11 kg; mk4 Height 5 ft. 10 in. (177.80 cm); 20:19 BP 133 / 76; Pulse 75; Resp 16; Temp 98.2(TE); Pulse Ox 98% on R/A; rw1 05/15 05:24 BP 128 / 76; Pulse 65; Resp 16; Temp 97.3(T); Pulse Ox 97% on R/A; Pain 0/10; rw1 12:24 BP 125 / 76; Pulse 85; Resp 18; Temp 97.4(O); Pulse Ox 97% ; dpm 05/14 14:29 Body Mass Index 24.39 (77.11 kg, 177.80 cm) 4 Vitals: 05/14 14:29 Log In Time N/A - ambulance arrival. 4 ED Course: 14:21 Patient visited by Beth Hammer Reg. lg 14:21 Patient moved to [facility] 14:21 Patient moved to [facility] dpm 14:28 Triage Initiated mk4 14:31 Patient visited by Olayinka Quevedo. dpm 14:32 Pt greeted and oriented to ED. Patient advised of names of staff involved in care, dpm location of call solorio, wait times and NPO status. Patient has correct armband on for positive identification. Placed in gown. Placed in psych safe attire. Bed in low position. Security observing. Property removed, inventory done, secured in belongings bag- placed in locked locker. Placed in locker 1. Psych Safety Check: Location: Psych Room. Visual Assessment: Cooperative. 14:33 Angelito Finn MD is Attending Physician. br1 14:53 The patient / caregiver is instructed regarding the plan of care and ED course. mk4 15:03 Patient visited by Angelito Finn MD. br1 15:12 Acetaminophen Level Sent. mk4 15:12 Basic Metabolic Profile Sent. mk4 15:12 Complete Blood Count Sent. mk4 15:12 Ethyl Alcohol (ethanol) Sent. mk4 15:12 Liver Profile Sent. mk4 15:12 Salicylate Level Sent. mk4 15:12 Thyroid Stimulating Hormone Sent. mk4 15:31 Patient visited by Olayinka Quevedo. dpm 15:45 Patient visited by Olayinka Quevedo. dpm 15:50 Drug Eval Toxicology ED Only Sent. mk4 16:01 Patient visited by Olayinka Quevedo. dpm 16:16 Patient visited by Olayinka Quevedo. dpm 16:31 Patient visited by Olayinka Quevedo. dpm 16:59 [facility] Payment Agreement was scanned into [employer] and attached to record. zo 17:01 Patient visited by Olayinka Quevedo. dpm 17:20 Patient visited by Olayinka Quevedo. dpm 17:35 Patient visited by Olayinka Quevedo. dpm 17:45 Patient moved to OBSERVATION br1 17:53 Patient visited by Olayinka Quevedo. dpm 18:08 Patient visited by Olayinka Quevedo. dpm 18:35 Patient visited by Olayinka Quevedo. dpm 18:53 Patient visited by Olayinka Quevedo. dpm 19:03 Patient visited by Navid Torres. tr 19:14 Patient visited by Navid Torres. tr 19:18 Bladimir Coffman LPN is Primary Nurse. rw1 19:29 Patient visited by Navid Torres. tr 19:34 Patient visited by Navid Torres. tr 19:49 Attending Physician role handed off by Angelito Finn MD cs11 19:49 Frankie Duncan DO is Attending Physician. cs11 20:01 Patient visited by Navid Torres. tr 20:18 Patient visited by Navid Torres. tr 20:32 Patient visited by Navid Torres. tr 20:46 Patient visited by Navid Torres. tr 21:00 Patient visited by Navid Torres. tr 21:14 Patient visited by Navid Torres. tr 21:30 Patient visited by Navid Torres. tr 22:00 Patient visited by Navid Torres. tr 22:28 Patient visited by Navid Torres. tr 22:45 Patient visited by Navid Torres. tr 23:01 Patient visited by Navid Torres. tr 23:15 Patient visited by Navid Torres. tr 23:30 Patient visited by Navid Torres. tr 23:44 Patient visited by Navid Torres. tr 05/15 00:00 Patient visited by Navid Torres. tr 00:18 Patient visited by Brian Navid. tr 00:48 Patient visited by [facility]. tr 01:13 Patient visited by Bladimir Coffman LPN. rw1 01:30 Patient visited by [facility] Navid. tr 01:48 Patient visited by [facility] Navid. tr 02:04 Patient visited by [facility]. tr 02:17 Patient visited by [facility]. tr 02:29 Patient visited by [facility] Navid. tr 02:44 Patient visited by [facility]. tr 03:01 Patient visited by [facility]. tr 03:17 Patient visited by [facility] Navid. tr 03:30 Patient visited by [facility]. tr 03:47 Patient visited by [facility]. tr 03:59 Patient visited by [facility]. tr 04:14 Patient visited by [facility]. tr 04:30 Patient visited by [facility]. tr 04:44 Patient visited by [facility]. tr 05:01 Patient visited by [facility]. tr 05:14 Patient visited by [facility]. tr 05:43 Patient visited by [facility]. tr 05:59 Patient visited by [facility]. tr 06:02 Patient visited by [facility]. tr 06:17 Patient visited by [facility]. tr 06:30 Patient visited by [facility]. tr 06:44 Patient visited by [facility]. tr 06:46 Patient visited by [facility]. tr 06:49 Attending Physician role handed off by Frankie Duncan DO sd1 06:49 Elisha Glaser MD is Attending Physician. sd1 07:04 Patient visited by Olayinka Quevedo. dpm 07:04 Report received from ROQUE Levy. kcs 07:15 Patient visited by Olayinka Quevedo. dpm 07:28 Patient visited by Olayinka Quevedo. dpm 08:03 Patient visited by Olayinka Quevedo. dpm 08:37 Patient visited by Olayinka Quevedo. dpm 08:45 Patient visited by Olayinka Quevedo. dpm 09:02 Patient visited by Olayinka Quevedo. dpm 09:32 Patient visited by Olayinka Quevedo. dpm 09:52 Patient visited by Olayinka Quevedo. dpm 10:05 Patient visited by Olayinka Quevedo. dpm 10:22 Patient visited by Olayinka Quevedo. dpm 10:33 Patient visited by Olayinka Quevedo. dpm 10:54 Patient visited by Olayinka Quevedo. dpm 11:10 Patient visited by Olayinka Quevedo. dpm 11:41 Patient visited by Olayinka Quevedo. dpm 12:09 Jorge Rueda MD is Hospitalizing Provider. sd1 12:11 [facility] Legal paperwork was scanned into [employer] and attached to record. jl 12:15 Patient visited by Olayinka Quevedo. dpm 12:22 No IV's were initiated during this patient's visit. No procedures done that require kcs assistance. 12:24 Patient visited by Olayinka Quevedo. dpm 12:31 Patient visited by Olayinka Quevedo. dpm Attachments: 05/15 12:11 E Legal paperwork jl Order Results: Lab Order: Acetaminophen Level; SPEC'M 05/14/16 14:52 Test: ACETAMINOPHEN LEVEL; Value: < 2.0; Range: 10.0-30.0; Abnormal: Below low normal; Units: UG/ML; Status: F Lab Order: Basic Metabolic Profile; SPEC'M 05/14/16 14:52 Test: GLUCOSE, FASTING; Value: 90; Range: 70-105; Units: MG/DL; Status: F Test: BLOOD UREA NITROGEN; Value: 17; Range: 7-18; Units: MG/DL; Status: F Test: CREATININE FOR GFR; Value: 1.04; Range: 0.70-1.30; Units: MG/DL; Status: F Test: GLOMERULAR FILTRATION RATE; Value: > 60.0; Range: >60; Status: F Test: SODIUM LEVEL; Value: 141; Range: 136-145; Units: MEQ/L; Status: F Test: POTASSIUM SERUM; Value: 3.9; Range: 3.5-5.1; Units: MEQ/L; Status: F Test: CHLORIDE LEVEL; Value: 104; Range: 98-107; Units: MEQ/L; Status: F Test: CARBON DIOXIDE LEVEL; Value: 32; Range: 21-32; Units: MEQ/L; Status: F Test: ANION GAP; Value: 5; Range: 8-16; Abnormal: Below low normal; Units: MEQ/L; Status: F Test: CALCIUM LEVEL; Value: 9.0; Range: 8.5-10.1; Units: MG/DL; Status: F Test Note: ; Units are mL/min/1.73 m2 Chronic Kidney Disease Staging per NKF: Stage I & II GFR >=60 Normal to Mildly Decreased Stage III GFR 30-59 Moderately Decreased Stage IV GFR 15-29 Severely Decreased Stage V GFR <15 Very Little GFR Left ESRD GFR <15 on TOXICOLOGY SUPERVISOR Lab Order: Complete Blood Count; SPEC'M 05/14/16 14:52 Test: WHITE BLOOD COUNT; Value: 8.3; Range: 4.0-10.0; Units: K/mm3; Status: F Test: RED BLOOD COUNT; Value: 5.48; Range: 4.30-6.10; Units: M/mm3; Status: F Test: HEMOGLOBIN; Value: 15.4; Range: 14.0-18.0; Units: g/dl; Status: F Test: HEMATOCRIT; Value: 44.2; Range: 42.0-52.0; Units: %; Status: F Test: MEAN CORPUSCULAR VOLUME; Value: 80.7; Range: 80.0-96.0; Units: fl; Status: F Test: MEAN CORPUSCULAR HEMOGLOBIN; Value: 28.2; Range: 27.0-33.0; Units: pg; Status: F Test: MEAN CORPUSCULAR HGB CONC; Value: 34.9; Range: 32.0-36.5; Units: g/dl; Status: F Test: RED CELL DISTRIBUTION WIDTH; Value: 12.5; Range: 11.5-14.5; Units: %; Status: F Test: PLATELET COUNT, AUTOMATED; Value: 365; Range: 150-450; Units: k/mm3; Status: F Lab Order: Drug Eval Toxicology ED Only; SPEC'M 05/14/16 14:52 Test: AMPHETAMINES LEVEL URINE; Value: NEGATIVE; Range: NEGATIVE; Status: F Test: BARBITURATES URINE; Value: NEGATIVE; Range: NEGATIVE; Status: F Test: BENZODIAZEPINES URINE; Value: NEGATIVE; Range: NEGATIVE; Status: F Test: CANNABINOIDS URINE; Value: NEGATIVE; Range: NEGATIVE; Status: F Test: COCAINE METABOLITE URINE; Value: NEGATIVE; Range: NEGATIVE; Status: F Test: METHADONE URINE; Value: NEGATIVE; Range: NEGATIVE; Status: F Test: OPIATES URINE; Value: NEGATIVE; Range: NEGATIVE; Status: F Test: TRICYCLIC ANTIDEPRESS URINE; Value: NEGATIVE; Range: NEGATIVE; Status: F Test Note: ; ALL PRESUMPTIVE POSITIVE FINDINGS ARE UNCONFIRMED NORMAL VALUES THRESHOLD IN NG/ML AMPHETAMINES 1000 METHAMPHETAMINES 1000 BARBITURATES 300 BENZODIAZEPINES 300 CANNABINOIDS (THC) 50 COCAINE METABOLITE 300 METHADONE 300 OPIATES 300 PHENCYCLIDINE 25 TRICYCLIC ANTIDEPRESSANTS 1000 RESULTS ARE FOR MEDICAL PURPOSES ONLY. ALL URINE SPECIMENS WILL BE SAVED FOR 3 DAYS. IF CONFIRMATION OF A PRESUMPTIVE POSTIVE SCREEN RESULT IS DESIRED, CALL CHEMISTRY ([phone]) AND REQUEST URINE TO BE SENT TO REFERENCE LAB. FOR A LIST OF CLOSELY RELATED COMPOUNDS PLEASE CALL THE LAB. Lab Order: Ethyl Alcohol (ethanol); SPEC'M 05/14/16 14:52 Test: ETHYL ALCOHOL (ETHANOL); Value: < 0.003; Range: 0.000-0.010; Units: %; Status: F Lab Order: Liver Profile; SPEC'M 05/14/16 14:52 Test: AST/SGOT; Value: 15; Range: 15-37; Units: U/L; Status: F Test: ALT/SGPT; Value: 24; Range: 12-78; Units: U/L; Status: F Test: ALKALINE PHOSPHATASE; Value: 86; Range: 45-117; Units: U/L; Status: F Test: BILIRUBIN,TOTAL; Value: 0.3; Range: 0.2-1.0; Units: MG/DL; Status: F Test: BILIRUBIN,DIRECT; Value: < 0.1; Range: 0.0-0.2; Units: MG/DL; Status: F Test: TOTAL PROTEIN; Value: 8.2; Range: 6.4-8.2; Units: GM/DL; Status: F Test: ALBUMIN; Value: 3.9; Range: 3.2-5.2; Units: GM/DL; Status: F Test: ALBUMIN/GLOBULIN RATIO; Value: 0.91; Range: 1.00-1.93; Abnormal: Below low normal; Status: F Lab Order: Salicylate Level; SPEC'M 05/14/16 14:52 Test: SALICYLATE LEVEL; Value: < 1.7; Range: 5.0-30.0; Abnormal: Below low normal; Units: MG/DL; Status: F Lab Order: Thyroid Stimulating Hormone; SPEC'M 05/14/16 14:52 Test: THYROID STIMULATING HORMONE; Value: 2.570; Range: 0.358-3.740; Units: uIU/ML; Status: F Outcome: 12:09 Decision to Hospitalize by Provider. sd1 12:22 Discharge Assessment: Patient awake, alert and oriented x 3. No cognitive and/or kcs functional deficits noted. Patient verbalized understanding of disposition instructions. Patient awake and alert. patient administered narcotics - no. The following High Risk Discharge criteria are identified: Yes, evaluated by PSA.. Admitted to Psych accompanied by tech, via wheelchair, with chart. Condition: stable. No special radiology studies were completed. Property :Personal belongings accompany Pt. 12:33 Patient left the ED. kcs Signatures: Elisha Glaser MD MD sd1 Carol Goldsmith RN RN kcs Jeanette Pastor, PSA PSA rb Alejandro Blanco, PSA PSA jl Beth Hammer, Troy Reg lg Brian, Navid tr Bladimir Coffman,CREDIT COLLECTIONS MANAGER CREDIT COLLECTIONS MANAGER rw1 Rosie Cohen Brian, MD MD br1 Olayinka Quevedo dpFrankie Santos, DO cs11 Angela Nava RN RN mk4 Cam Albert RN RN nn1 Chart Complete MTDD
--- NOTE | 2016-05-17 13:34 | EDDOCDS ---
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 Disposition: 05/15/16 12:09 Hospitalization ordered by Jorge Rueda for Inpatient Admission. Preliminary diagnosis is Major depressive disorder, single episode, moderate. - Bed requested for Admit. - Status is Inpatient Admission. kcs - Condition is Stable. - Problem is new. - Symptoms are unchanged. Historical: - Allergies: no known allergies; - Home Meds: 1. none - PMHx: none; - PSHx: wisdom teeth extraction; PRK Eye Surgery; left arm bone surgery as a child (fx); - Social history: Smoking status: Patient states was never smoker of tobacco. No barriers to communication noted. - Family history: Not pertinent. - : The pt / caregiver states he / she is not on anticoagulants. Home medication list is obtained from the patient. - Exposure Risk Screening:: None identified. Vital Signs: 05/14 14:29 BP 139 / 75; Pulse 86; Resp 18; Temp 97.2(O); Pulse Ox 99% on R/A; Weight 77.11 kg / mk4 170 lbs; Height 5 ft. 10 in. (177.80 cm); 20:19 BP 133 / 76; Pulse 75; Resp 16; Temp 98.2(TE); Pulse Ox 98% on R/A; rw1 05/15 05:24 BP 128 / 76; Pulse 65; Resp 16; Temp 97.3(T); Pulse Ox 97% on R/A; Pain 0/10; rw1 12:24 BP 125 / 76; Pulse 85; Resp 18; Temp 97.4(O); Pulse Ox 97% ; dpm 05/14 14:29 Body Mass Index 24.39 (77.11 kg, 177.80 cm) mk4 MDM: 05/14 14:33 Consult PFS/PSA/Division Director ordered. br1 14:33 Consult PFS/PSA/Division Director: Patient's case requires discussion with on-call br1 Psychiatrist ordered. 14:33 PSA/PFS to call Nursing Transport Medic, to enter patient data on [place] if patient br1 involuntarily admitted or transferred for SI or HI ordered. 14:33 Confirm accurate psychiatric medication list and times of last dosage ordered. br1 14:33 Detain Pt Until Medically/PFS Cleared ordered. br1 14:34 Acetaminophen Level Ordered. EDMS 14:34 Basic Metabolic Profile Ordered. EDMS 14:34 Complete Blood Count Ordered. EDMS 14:34 Drug Eval Toxicology ED Only Ordered. EDMS 14:34 Ethyl Alcohol (ethanol) Ordered. EDMS 14:34 Liver Profile Ordered. EDMS 14:34 Salicylate Level Ordered. EDMS 14:34 Thyroid Stimulating Hormone Ordered. EDMS 15:07 Consult PFS/PSA/Division Director complete. rb 15:12 Consult PFS/PSA/Division Director: Patient's case requires discussion with on-call mk4 Psychiatrist complete. 15:12 PSA/PFS to call Nursing Transport Medic, to enter [place] data [place] if patient mk4 involuntarily admitted or transferred for SI or HI complete. 15:51 Financial registration complete. zo 16:26 Acetaminophen Level Reviewed. br1 16:26 Basic Metabolic Profile Reviewed. br1 16:26 Liver Profile Reviewed. br1 16:26 Salicylate Level Reviewed. br1 16:26 Complete Blood Count Reviewed. br1 16:26 Drug Eval Toxicology ED Only Reviewed. br1 16:26 Ethyl Alcohol (ethanol) Reviewed. br1 16:26 Thyroid Stimulating Hormone Reviewed. br1 16:36 REGULAR DIET PLASTIC RUSSO+DIET ordered. EDMS 16:59 [facility] Payment Agreement was scanned into [email or web address] and attached to record. zo 17:00 Consult PFS/PSA/Socail Worker: Cleared medically for eval ordered. br1 17:01 Consult PFS/PSA/Socail Worker: Cleared medically for eval complete. rb 18:58 Transition of care: After a detail discussion of the patient's case, care is br1 transferred to ED Physician, Dr. Duncan. 05/15 04:34 REGULAR DIET PLASTIC RUSSO+DIET ordered. EDMS 06:38 REGULAR DIET PED PLASTIC RUSSO ordered. EDMS 11:45 REGULAR DIET PLASTIC RUSSO+DIET ordered. EDMS 12:02 Admit to [facility]: ordered. EDMS 12:11 [facility] Legal paperwork was scanned into [employer] and attached to record. jl Signatures: Dispatcher [employer] EDElisha Daugherty MD MD sd1 Carol Goldsmith RN RN kcs Jeanette Pastor, PAWEL PSA Alejandro Lay, PAWEL PSA Rosie Burt Brian, MD MD br1 Angela Nava RN RN mk4 The chart was reviewed and I authenticate all verbal orders and agree with the evaluation and treatment provided.Attachments: 05/14 16:59 [facility] Payment Agreement zo Chart Complete MTDD
--- NOTE | 2016-05-17 13:34 | EDDOCDS ---
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 Disposition: 05/15/16 12:09 Hospitalization ordered by Jorge Rueda for Inpatient Admission. Preliminary diagnosis is Major depressive disorder, single episode, moderate. - Bed requested for Admit. - Status is Inpatient Admission. kcs - Condition is Stable. - Problem is new. - Symptoms are unchanged. Historical: - Allergies: no known allergies; - Home Meds: 1. none - PMHx: none; - PSHx: wisdom teeth extraction; PRK Eye Surgery; left arm bone surgery as a child (fx); - Social history: Smoking status: Patient states was never smoker of tobacco. No barriers to communication noted. - Family history: Not pertinent. - : The pt / caregiver states he / she is not on anticoagulants. Home medication list is obtained from the patient. - Exposure Risk Screening:: None identified. Vital Signs: 05/14 14:29 BP 139 / 75; Pulse 86; Resp 18; Temp 97.2(O); Pulse Ox 99% on R/A; Weight 77.11 kg / mk4 170 lbs; Height 5 ft. 10 in. (177.80 cm); 20:19 BP 133 / 76; Pulse 75; Resp 16; Temp 98.2(TE); Pulse Ox 98% on R/A; rw1 05/15 05:24 BP 128 / 76; Pulse 65; Resp 16; Temp 97.3(T); Pulse Ox 97% on R/A; Pain 0/10; rw1 12:24 BP 125 / 76; Pulse 85; Resp 18; Temp 97.4(O); Pulse Ox 97% ; dpm 05/14 14:29 Body Mass Index 24.39 (77.11 kg, 177.80 cm) mk4 MDM: 05/14 14:33 Consult PFS/PSA/Holistic Nutritionist ordered. br1 14:33 Consult PFS/PSA/Holistic Nutritionist: Patient's case requires discussion with on-call br1 Psychiatrist ordered. 14:33 PSA/PFS to call Nursing Swatch Folder, to enter [place] data [place] if patient br1 involuntarily admitted or transferred for SI or HI ordered. 14:33 Confirm accurate psychiatric medication list and times of last dosage ordered. br1 14:33 Detain Pt Until Medically/PFS Cleared ordered. br1 14:34 Acetaminophen Level Ordered. EDMS 14:34 Basic Metabolic Profile Ordered. EDMS 14:34 Complete Blood Count Ordered. EDMS 14:34 Drug Eval Toxicology ED Only Ordered. EDMS 14:34 Ethyl Alcohol (ethanol) Ordered. EDMS 14:34 Liver Profile Ordered. EDMS 14:34 Salicylate Level Ordered. EDMS 14:34 Thyroid Stimulating Hormone Ordered. EDMS 15:07 Consult PFS/PSA/Holistic Nutritionist complete. rb 15:12 Consult PFS/PSA/Holistic Nutritionist: Patient's case requires discussion with on-call mk4 Psychiatrist complete. 15:12 PSA/PFS to call Nursing Swatch Folder, to enter [place] if patient mk4 involuntarily admitted or transferred for SI or HI complete. 15:51 Financial registration complete. zo 16:26 Acetaminophen Level Reviewed. br1 16:26 Basic Metabolic Profile Reviewed. br1 16:26 Liver Profile Reviewed. br1 16:26 Salicylate Level Reviewed. br1 16:26 Complete Blood Count Reviewed. br1 16:26 Drug Eval Toxicology ED Only Reviewed. br1 16:26 Ethyl Alcohol (ethanol) Reviewed. br1 16:26 Thyroid Stimulating Hormone Reviewed. br1 16:36 REGULAR DIET PLASTIC RUSSO+DIET ordered. EDMS 16:59 [facility] Payment Agreement was scanned into [employer] and attached to record. zo 17:00 Consult PFS/PSA/Socail Worker: Cleared medically for eval ordered. br1 17:01 Consult PFS/PSA/Socail Worker: Cleared medically for eval complete. rb 18:58 Transition of care: After a detail discussion of the patient's case, care is br1 transferred to ED Physician, Dr. Duncan. 05/15 04:34 REGULAR DIET PLASTIC RUSSO+DIET ordered. EDMS 06:38 REGULAR DIET PED PLASTIC RUSSO ordered. EDMS 11:45 REGULAR DIET PLASTIC RUSSO+DIET ordered. EDMS 12:02 Admit to [facility]: ordered. EDMS 12:11 [facility] Legal paperwork was scanned into [employer] and attached to record. jl Signatures: Dispatcher [employer] EDElisha Daugherty MD MD sd1 Carol Goldsmith RN RN kcs Jeanette Pastor, PAWEL PSA Alejandro Lay, PAWEL PSA Rosie Burt Brian, MD MD br1 Angela Nava RN RN mk4 The chart was reviewed and I authenticate all verbal orders and agree with the evaluation and treatment provided.Attachments: 05/14 16:59 [facility] Payment Agreement zo Chart Complete MTDD
[2016-05-17 18:00] VITALS: BP 129/64
--- NOTE | 2016-05-17 18:45 | IPNPDOC ---
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 Latrine Cleaner met with patient today to assess treatment progress on inpatient unit. Patient reports current anxiety level of 4/10, depression 3/ 10, denies suicidal and homicidal ideation, denies audiovisual hallucinations, denies urge to engage in self-injurious behavior, denies panic. Patient informs signwriter he is experiencing poor sleep which she believes is contributing to his symptoms of anxiety and depression, today makes request for medication to address sleep challenges. Patient continues to deny need for standing antidepressant to address symptoms of anxiety and depression, however, agrees to continue to consider. Patient has been isolating to room in a.m., but states he has been attending afternoon groups and notes unit programming has been helpful. Patient states appetite is stable, energy level remains low, denies challenges with concentration and focus. Patient denies pain at time of interaction and presents with no signs of acute distress. VITAL SIGNS: See below. NEW TEST RESULTS: No new results. Labs on admission indicate low anion gap and AGR. Patient reports history of PKR eye surgery, left arm fracture, asthma as child. Patient denies history of seizure or head injury. EKG 05/17/16 sinus rhythm CURRENT MEDICATIONS: See below. MENTAL STATUS EXAMINATION: Patient is 25-year-old , father of 1 child, male active duty [employer] who is pleasant and cooperative, displays good personal hygiene, is dressed in hospital clothing, exhibits fair eye contact, is of average build, ambulates with steady gait, appears stated age. Speech: Is of normal rate, rhythm, volume, coherent, spontaneous. Language skills are intact. Thought processes: Clear, goal-directed. Thought content: Rational, logical, no paranoia. Abstract reasoning, and computation: Appears intact. Description of associations: Intact. Description of abnormal or psychotic thoughts: denies hallucinations, delusions , preoccupation with violence, homicidal or suicidal ideation, and obsessions]. Judgment: Poor. Insight: Poor. Orientation to time, place and person. Recent and remote memory: Appears intact Attention span and concentration: Within normal limits. Language: Normal. Fund of knowledge: Adequate. Mood: "Less sad today but still depressed." Appears less depressed and anxious, no mood lability noted. Affect: Constricted, congruent with affect DIAGNOSES: Unspecified mood disorder, rule out adjustment disorder with mixed anxiety and depressed mood, ASSESSMENT: Patient is 25-year-old , father of 1 child, active duty [employer] who was sent from behavioral health for evaluation after expressing suicidal ideation with plan by a MVA. Patient appears to be adjusting to unit, was encouraged to attend groups, has been cooperative with staff. Patient denies suicidal and homicidal ideation, and is able to verbalize how to access supportive services on unit if needed. Patient continues to decline standing psychotropic medications but today inquires as to sleep aid, is aware he has trazodone available to him for sleep. Patient is able to verbalize a connection between quality sleep and likelihood of reducing symptoms of anxiety and depression. In addition, patient states he feels he is benefiting from inpatient programming, notes he is developing coping mechanisms and stress reduction methods. Patient indicates he wants to return to [employer] to participate in outpatient behavioral health services after completing inpatient treatment. Will monitor patient's response to antidepressant sleep medication, medication side effects, and will evaluate resolution of suicidal ideation, and discharge readiness. MANAGEMENT PLAN: Encourage patient to consider taking psychotropic medication to address symptoms if appropriate. Patient is aware he has trazodone 50 mg po hs PRN insomnia available to him for sleep Maintain safety precautions Patient to attend groups and participate in unit programming to develop coping strategies Engage patient in discharge planning process and arrange meeting with command to ensure safe discharge planning when appropriate Patient to follow up with [facility] [facility] upon discharge Vital Signs Vital Signs Date Time Temp Pulse Resp B/P Pulse Ox O2 Delivery O2 Flow Rate FiO2 05/17/16 06:22 96.2 51 16 144/79 05/15/16 12:50 98 Room Air Current Medications Current Medications Acetaminophen (Tylenol Tab) 650 mg Q6HP PRN PO HEADACHE or DISCOMFORT; Start at 14:45; Stop 06/14/16 at 14:44 Al Hydrox/Mg Hydrox/Simethicone (Mylanta) 30 ml Q4HP PRN PO HEARTBURN/ INDIGESTION; Start 05/15/16 at 14:45; Stop 06/14/16 at 14:44 Home Med (Med Rec Complete!) ASDIRECTED XX ; Start 05/15/16 at 12:45; Stop at 12:45; Status DC Lorazepam (Ativan) 1 mg Q4HP PRN PO ANXIETY/AGITATION; Start 05/15/16 at 14:45 ; Stop 05/22/16 at 14:44 Magnesium Hydroxide (Milk Of Magnesia) 30 ml DAILYPRN PRN PO CONSTIPATION; Start 05/15/16 at 14:45; Stop 06/14/16 at 14:44 Trazodone HCl (Desyrel) 50 mg QHSP PRN PO INSOMNIA; Start 05/15/16 at 14:45; Stop 06/14/16 at 14:44 Allergies Coded Allergies: No Known Allergies (Unverified , 05/15/16) Krupa Sanders May 17, 2016 18:45 child. Patient had 1 prior marriage for 2 years, no children. 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 SUBSTANCE ABUSE HISTORY: Patient indicated she consumes alcohol approximately 1 drink every few months, denies other substance use or abuse. LEGAL HISTORY: Denies. VITAL SIGNS: B/P 120/62, P 66, R 18, T 97.0 LABORATORY DATA: Please see below. MENTAL STATUS EXAMINATION: Patient is 25-year-old , father of 1 child, male active duty [employer] who is pleasant and cooperative, displays good personal hygiene, is dressed in hospital clothing, exhibits good eye contact, is of average build, ambulates with steady gait, appears stated age. Speech: Is of normal rate, rhythm, volume, coherent, spontaneous. Language skills are intact. Thought processes: Clear, goal-directed. Thought content: Rational, logical, no paranoia. Abstract reasoning, and computation: Appears intact. Description of associations: Intact. Description of abnormal or psychotic thoughts: denies hallucinations, delusions , preoccupation with violence, homicidal or suicidal ideation, and obsessions]. Judgment: Poor. Insight: Poor. Orientation to time, place and person. Recent and remote memory: Appears intact Attention span and concentration: Within normal limits. Language: Normal. Fund of knowledge: Adequate. Mood: "Sad." Appears depressed and anxious, no mood lability noted. 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 Patient appears to be adjusting to unit, was encouraged to attend groups, has been cooperative with staff. Patient denies suicidal and homicidal ideation, and is able to verbalize how to access supportive services on unit if needed. Patient is currently declining psychotropic medications stating is contrary to his congregation which is [employer]. Patient informs signwriter he prefers to use "natural treatments of exercise and meditation," was provided with educational information on medication options which she agrees to consider. Patient indicates he wants to return to [employer] to participate in outpatient behavioral health services after completing inpatient treatment. Will monitor patient's response to inpatient environment, need for psychotropic medications, and will evaluate resolution of suicidal ideation, and discharge readiness. PROBLEM LIST: Suicidal ideation with plan Depression Anxiety Ineffective coping Limited support system Relationship tension Work-related stress Financial stress INITIAL TREATMENT PLAN: 1. Patient was admitted on a 9.39 legal status. 2. Complete history was obtained. 3. With patients permission, family will be contacted and database will be expanded. 4. Patients medication regimen will be reviewed and changed accordingly. 5. Patient will be provided with protected environment. 6. Patient will be treated with individual, group, and milieu therapies. 7. Patient will receive supportive psych-education. 8. Discharge planning will commence immediately. 9. Outpatient follow-up treatment will be strongly recommended. 10. The initial treatment plan will focus initially on: * Depression. * Risk for suicide. ESTIMATED LENGTH OF STAY: 5-7 DAYS. TIME SPENT COUNSELING AND COORDINATING INITIAL CARE: 50 minutes. Vital Signs Vital Signs Date Time Temp Pulse Resp B/P Pulse Ox O2 Delivery O2 Flow Rate FiO2 05/17/16 06:22 96.2 51 16 144/79 05/15/16 12:50 98 Room Air Current Medications Current Medications Acetaminophen (Tylenol Tab) 650 mg Q6HP PRN PO HEADACHE or DISCOMFORT; Start at 14:45; Stop 06/14/16 at 14:44 Al Hydrox/Mg Hydrox/Simethicone (Mylanta) 30 ml Q4HP PRN PO HEARTBURN/ INDIGESTION; Start 05/15/16 at 14:45; Stop 06/14/16 at 14:44 Home Med (Med Rec Complete!) ASDIRECTED XX ; Start 05/15/16 at 12:45; Stop at 12:45; Status DC Lorazepam (Ativan) 1 mg Q4HP PRN PO ANXIETY/AGITATION; Start 05/15/16 at 14:45 ; Stop 05/22/16 at 14:44 Magnesium Hydroxide (Milk Of Magnesia) 30 ml DAILYPRN PRN PO CONSTIPATION; Start 05/15/16 at 14:45; Stop 06/14/16 at 14:44 Trazodone HCl (Desyrel) 50 mg QHSP PRN PO INSOMNIA; Start 05/15/16 at 14:45; Stop 06/14/16 at 14:44 Allergies Coded Allergies: No Known Allergies (Unverified , 05/15/16) Krupa Sanders May 17, 2016 18:45
[2016-05-17] MEDS: traZODone 50 MG TAB PO PRN (22:14)
[2016-05-18 07:07] VITALS: BP 153/72
[2016-05-18] MEDS ORDERED: hydrOXYzine 50 MG TAB PO PRN (15:15)
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
[2016-05-18 18:00] VITALS: BP 124/70
[2016-05-18] MEDS: traZODone 50 MG TAB PO PRN (23:36)
[2016-05-19 06:36] VITALS: BP 141/70
[2016-05-19 18:00] VITALS: BP 135/66
[2016-05-20 06:43] VITALS: BP 123/64
[2016-05-20 18:00] VITALS: BP 132/80
[2016-05-20] MEDS: traZODone 50 MG TAB PO PRN (23:01)
[2016-05-21 06:20] VITALS: BP 118/60
[2016-05-21 18:00] VITALS: BP 133/72
[2016-05-21] MEDS: traZODone 50 MG TAB PO PRN (22:54)
[2016-05-22 06:21] VITALS: BP 123/60
--- NOTE | 2016-05-22 09:27 | IPN ---
DATE OF SERVICE: 05/21/2016 SUBJECTIVE: "I feel much better." OBJECTIVE: The patient is significantly improved from admission. The patient denies feelings of depression. Denies suicidal or homicidal ideation. The patient does not have auditory or visual hallucinations or delusions. The patient is motivated for treatment. The patient had the chain of command done today. MENTAL STATUS EXAMINATION: The patient is dressed in [facility]. The patient is calm and cooperative. Speech is clear, coherent, with normal rate and spontaneous. Mood is slightly depressed. Affect is congruent with mood. No delusions or hallucinations. Memory is fair. The patient is fully oriented. Associations are intact. Thinking is logical. Thought content is appropriate. The patient is denying suicidal or homicidal ideation during the interview. Insight and judgment is fair. ASSESSMENT: 1. Depression. 2. Suicidal ideation. PLAN: The patient is significantly improved. The discharge process has been started.
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
[2016-05-22 22:07] VITALS: BP 136/74
[2016-05-22] MEDS: traZODone 50 MG TAB PO PRN (22:26)
[2016-05-23 06:10] VITALS: BP 139/65
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
[2016-05-23] MEDS ORDERED: TRAZO50TA PO (08:46)
== END 2016-05-23 09:30 | disposition home or self-care (01) | DRG 882 ==
LOC: M ED 14:20 → M ED INP 05-15 11:58 → M PSY 05-15 12:40
PROVIDERS: ADMIT Psychiatry & Neurology Psychiatry; ATTEND Psychiatry & Neurology Psychiatry
DX: F43.25 Adjustment disorder with mixed disturbance of emotions and conduct (principal)